=== PATIENT | male | born 1935 | race Caucasian/White ===

== ENCOUNTER 2021-06-23 20:15 | Inpatient (IN) | payer MEDICARE, OTHER ==
[~2021-06-23] VITALS: Ht 170.2 cm; Wt 70.8 kg
[2021-06-23 20:38] LABS: ARTERIAL BLD GAS O2 SATURATION 93.1 % (92-100); ARTERIAL BLD GAS TCO2 CT 24.5; ARTERIAL BLOOD GAS BASE EXCESS 0.7 (-2-2); ARTERIAL BLOOD GAS HCO3 23.5 meq/L (22-26); ARTERIAL BLOOD GAS PCO2 31.6 mmHg (35-45); ARTERIAL BLOOD GAS PO2 67.2 mmHg (80-100); ARTERIAL BLOOD GAS pH 7.49 (7.35-7.45)
[2021-06-23 20:49] LABS: HEMOGLOBIN 10.1 g/dl (13.5-18.0); MEAN CELL VOLUME 87 fl (80.0-100.0); MEAN CORPUSCULAR HEMOGLOBIN 29 pg (27.0-31.0); MEAN CORPUSCULAR HGB CONC 34 g/dl (33.0-37.0); MEAN PLATELET VOLUME 9.9 fl (7.4-10.4); PLATELET COUNT 244 K/mm3 (130-400); RED BLOOD COUNT 3.46 M/mm3 (4.20-5.60); REDCELL DISTRIBUTION WIDTH-CV 14.3 % (11.5-14.5)
[2021-06-23 20:59] LABS: HEMATOCRIT 30.1 % (42.0-52.0)
[2021-06-23 21:12] LABS: ALBUMIN 2.9 gm/dL (3.4-4.8); BILIRUBIN,TOTAL 0.4 mg/dL (0.2-1.2); CALCIUM 8.6 mg/dL (8.4-10.2); CREATININE, serum 2.01 mg/dL (0.72-1.25); POTASSIUM 3.5 mmol/L (3.5-4.5); TOTAL PROTEIN 6.9 gm/dL (6.2-8.1)
[2021-06-23 21:18] LABS: TROPONIN-I 0.015 ng/mL (0.00-0.033)
[2021-06-23 21:38] LABS: BAND 3 % (0-10); LYMPHOCYTE 8 % (20.0-51.0); METAMYELOCYTE 1 % (0-0); NEUTROPHILS 86 % (42.0-75.2); PLATELET ESTIMATE NORMAL (NORMAL)
--- NOTE | 2021-06-23 23:00 | NUR ---
Patient to medical room 306 at this time. He is alert and oriented with no complaints of pain. He is on 30 liters airvo and satting 95%. He ambulates with SBA assist to bathroom to void. Pt has a nonproductive cough but denies need for cough medicine. Lungs are diminished throughout and HR is normal/regular. No edema or skin issues are noted. Comfort measures provided and call light in reach.
[2021-06-23 23:25] VITALS: BP 157/64; PULSE 69; TEMP 98.6
[2021-06-24 01:58] LABS: INR 1.1 (0.8-3.0); PROTHROMBIN TIME 11.9 SECONDS (9.7-12.8)
[2021-06-24] MEDS ORDERED: ASPIRIN 81M81 MG/TA2 PO (04:08)
[2021-06-24] MEDS ORDERED: NORVASC 10MG10 MG PO (04:08)
[2021-06-24] MEDS ORDERED: MUCINEX 60600 MG/TA1 PO (04:09)
[2021-06-24] MEDS ORDERED: ZANTAC-360 (FAM20 MG PO (04:10)
[2021-06-24] MEDS ORDERED: MASON NATURAL2000 IU PO (04:10)
[2021-06-24] MEDS ORDERED: ZOCOR 10MG10 MG PO (04:10)
[2021-06-24] MEDS ORDERED: MICARDIS40 MG PO (04:10)
[2021-06-24] MEDS ORDERED: ZYRTEC 10MG10 MG PO (04:11)
[2021-06-24] MEDS ORDERED: MYRBETR25MG PO (04:11)
[2021-06-24] MEDS ORDERED: CHERATUSSIN AC240 ML PO (04:12)
[2021-06-24] MEDS ORDERED: ASTELIN NASAL S34 ML NS (04:12)
[2021-06-24] MEDS ORDERED: FLONASEALLERGY NS (04:12)
[2021-06-24] MEDS ORDERED: METAMUCIL3.4 GM/DOS PO (04:13)
[2021-06-24 05:27] VITALS: BP 147/67; PULSE 61; TEMP 98.5
--- NOTE | 2021-06-24 07:09 | NUR ---
RECEIVED REPORT FROM NICO ZAVALETA. PT ASLEEP IN BED. BREATHING REGULAR/UNLABORED. AIRVO ON. CALL REID IN REACH
[2021-06-24 08:15] LABS: HEMOGLOBIN 10.2 g/dl (13.5-18.0); MEAN CELL VOLUME 87 fl (80.0-100.0); MEAN CORPUSCULAR HEMOGLOBIN 30 pg (27.0-31.0); MEAN CORPUSCULAR HGB CONC 35 g/dl (33.0-37.0); MEAN PLATELET VOLUME 10.2 fl (7.4-10.4); PLATELET COUNT 246 K/mm3 (130-400); REDCELL DISTRIBUTION WIDTH-CV 14.2 % (11.5-14.5)
[2021-06-24 08:24] LABS: HEMATOCRIT 29.4 % (42.0-52.0)
[2021-06-24 09:21] VITALS: BP 114/71; PULSE 81; TEMP 98.8
[2021-06-24 09:30] LABS: BAND 7 % (0-10); HYPOCHROMIA 1+; LYMPHOCYTE 4 % (20.0-51.0); METAMYELOCYTE 1 % (0-0); NEUTROPHILS 88 % (42.0-75.2)
[2021-06-24 09:36] LABS: ANISOCYTOSIS 1+
--- NOTE | 2021-06-24 10:55 | NUR ---
CRITICAL LAB VALUE REPORTED TO DR AT 1000.
--- NOTE | 2021-06-24 11:10 | NUR ---
HEPARIN DRIP STARTED BY NICO HICKMAN. VERIFIED BY NICO EASLEY. PT INCONTININENT OF URINE. NEW GOWN AND SHEETS GIVEN
[2021-06-24 12:12] VITALS: BP 140/63; PULSE 76; TEMP 98.8
[2021-06-24 16:34] VITALS: BP 1401/58; PULSE 62; TEMP 98.2
--- NOTE | 2021-06-24 18:20 | NUR ---
PT HAD UNEVENTFUL DAY. NO NEEDS AT THIS TIME. PT DENIES PAIN. CALL REID IN REACH
--- NOTE | 2021-06-24 20:00 | NUR ---
Assessment complete. Patient on 30 liters airvo and tolerating well, satting 96%. Patient is independent/SBA for equipment in room; He has urinary incontinence and is provided with new brief and linen at this time. No edema is noted, patient is afebrile. No new concerns, call light in reach.
[2021-06-24 21:42] VITALS: BP 125/66; PULSE 72; TEMP 98.4
[2021-06-24 22:57] LABS: CALCIUM 8.7 mg/dL (8.4-10.2); CREATININE, serum 1.24 mg/dL (0.72-1.25); MAGNESIUM 1.8 mg/dL (1.6-2.6); POTASSIUM 3.7 mmol/L (3.5-4.5)
[2021-06-24 23:04] LABS: TROPONIN-I 0.025 ng/mL (0.00-0.033)
[2021-06-24 23:29] VITALS: BP 150/70; PULSE 66; TEMP 98.4
[2021-06-25 03:03] LABS: ARTERIAL BLD GAS O2 SATURATION 93.4 % (92-100); ARTERIAL BLD GAS TCO2 CT 22.8; ARTERIAL BLOOD GAS BASE EXCESS -0.6 (-2-2); ARTERIAL BLOOD GAS HCO3 21.8 meq/L (22-26); ARTERIAL BLOOD GAS PCO2 30.7 mmHg (35-45); ARTERIAL BLOOD GAS PO2 65.6 mmHg (80-100); ARTERIAL BLOOD GAS pH 7.47 (7.35-7.45)
[2021-06-25 06:57] LABS: MEAN CELL VOLUME 88 fl (80.0-100.0); MEAN CORPUSCULAR HGB CONC 33 g/dl (33.0-37.0); MEAN PLATELET VOLUME 10.2 fl (7.4-10.4); PLATELET COUNT 250 K/mm3 (130-400); RED BLOOD COUNT 3.16 M/mm3 (4.20-5.60); REDCELL DISTRIBUTION WIDTH-CV 14.2 % (11.5-14.5)
[2021-06-25 07:00] LABS: HEMATOCRIT 27.9 % (42.0-52.0); HEMOGLOBIN 9.1 g/dl (13.5-18.0); MEAN CORPUSCULAR HEMOGLOBIN 29 pg (27.0-31.0)
[2021-06-25 07:11] LABS: ALBUMIN 2.6 gm/dL (3.4-4.8); BILIRUBIN,TOTAL 0.3 mg/dL (0.2-1.2); CALCIUM 8.6 mg/dL (8.4-10.2); CREATININE, serum 1.14 mg/dL (0.72-1.25); POTASSIUM 4.1 mmol/L (3.5-4.5)
[2021-06-25 08:07] LABS: HYPOCHROMIA 1+; LYMPHOCYTE 9 % (20.0-51.0); NEUTROPHILS 89 % (42.0-75.2)
[2021-06-25 08:08] LABS: PLATELET ESTIMATE NORMAL (NORMAL)
[2021-06-25 09:18] VITALS: BP 160/63; PULSE 65; TEMP 98.3
--- NOTE | 2021-06-25 10:25 | NUR ---
Pt awake upon entry, sitting on side of bed. No C/O pain at this time. Shift assessment complete, left Pt call light selma reach, bed in lowest position.
[2021-06-25 11:48] VITALS: BP 149/62; PULSE 63; TEMP 97.8
[2021-06-25 17:44] VITALS: BP 143/65; PULSE 66; TEMP 98
--- NOTE | 2021-06-25 18:36 | NUR ---
Pt resting in the room, currently on 45 LPM AIRVO. No complaints during the day. VS have remained stable.
--- NOTE | 2021-06-25 20:00 | NUR ---
Patient is sitting in bed, alert and oriented x 4, VSS, using Airvo 45% O2 WNL. Denies pain, nausea, vomiting, dizziness. Tele in place. Assessment completed, some briefs provided. No further need at this time. Call light within reach.
[2021-06-25 20:16] VITALS: BP 160/69; PULSE 74; TEMP 98.5
[2021-06-25 23:34] VITALS: BP 159/60; PULSE 79; TEMP 98.3
--- NOTE | 2021-06-26 00:25 | NUR ---
Patient is resting in bed, Airvo 35L per min, 70%o2.
--- NOTE | 2021-06-26 02:56 | NUR ---
Patient is awake in room after going to restroom. TELE lost, help him to find it and connect it again. Patient continues with cough.
[2021-06-26 03:12] LABS: ARTERIAL BLD GAS O2 SATURATION 96.3 % (92-100); ARTERIAL BLD GAS TCO2 CT 22.7; ARTERIAL BLOOD GAS BASE EXCESS -0.8 (-2-2); ARTERIAL BLOOD GAS HCO3 21.7 meq/L (22-26); ARTERIAL BLOOD GAS PCO2 30.2 mmHg (35-45); ARTERIAL BLOOD GAS pH 7.48 (7.35-7.45)
[2021-06-26 03:28] VITALS: BP 150/63; PULSE 63; TEMP 98.3
--- NOTE | 2021-06-26 06:10 | NUR ---
Patient has have a calm night. He continues with the same settings for the airvo. He was sleeping on his chest for a couple of hrs. Then call asking to replace the O2 in his nose. No further needs at this time. Call light within reach. Shift report will be given to day nurse.
[2021-06-26 06:36] LABS: MEAN CELL VOLUME 91 fl (80.0-100.0); MEAN CORPUSCULAR HGB CONC 32 g/dl (33.0-37.0); MEAN PLATELET VOLUME 10.5 fl (7.4-10.4); PLATELET COUNT 292 K/mm3 (130-400); RED BLOOD COUNT 3.41 M/mm3 (4.20-5.60); REDCELL DISTRIBUTION WIDTH-CV 14.2 % (11.5-14.5)
[2021-06-26 06:42] LABS: HEMATOCRIT 30.9 % (42.0-52.0); HEMOGLOBIN 9.9 g/dl (13.5-18.0); MEAN CORPUSCULAR HEMOGLOBIN 29 pg (27.0-31.0)
[2021-06-26 06:43] LABS: C-REACTIVE PROTEIN 6.3 mg/dL (0.00-0.50); CALCIUM 8.5 mg/dL (8.4-10.2); CREATININE, serum 0.97 mg/dL (0.72-1.25); POTASSIUM 4.2 mmol/L (3.5-4.5)
[2021-06-26 08:32] VITALS: BP 169/67; PULSE 73; TEMP 98.7
[2021-06-26 08:57] LABS: BAND 1 % (0-10); HYPOCHROMIA 1+; LYMPHOCYTE 6 % (20.0-51.0); NEUTROPHILS 82 % (42.0-75.2); PLATELET ESTIMATE NORMAL (NORMAL)
--- NOTE | 2021-06-26 09:31 | NUR ---
Pt awake upon entry, sitting in bed. No C/O pain at this time. Shift assessment complete, left Pt call light in reach, bed in lowest position.
[2021-06-26 12:15] VITALS: BP 137/67; PULSE 66; TEMP 98.4
[2021-06-26 16:45] VITALS: BP 144/63; PULSE 75; TEMP 98.4
[2021-06-26 20:03] VITALS: BP 153/60; PULSE 63; TEMP 98.3
--- NOTE | 2021-06-26 23:29 | NUR ---
PT SITTING UP ON EDGE OF BED. EVENING MEDICATIONS GIVEN. BREATHING LABORED, WITH INSPIRATORY WHEEZING. DENIES ANY NEEDS. WILL CONTINUE TO MONITOR.
[2021-06-26 23:45] VITALS: BP 149/61; PULSE 63; TEMP 98.4
[2021-06-27 03:06] LABS: ARTERIAL BLD GAS O2 SATURATION 94.4 % (92-100); ARTERIAL BLD GAS TCO2 CT 22.7; ARTERIAL BLOOD GAS BASE EXCESS -1.3 (-2-2); ARTERIAL BLOOD GAS HCO3 21.8 meq/L (22-26); ARTERIAL BLOOD GAS PO2 72.1 mmHg (80-100); ARTERIAL BLOOD GAS pH 7.46 (7.35-7.45)
[2021-06-27 05:10] VITALS: BP 160/64; PULSE 66; TEMP 98.6
[2021-06-27 07:09] LABS: HEMOGLOBIN 10.7 g/dl (13.5-18.0); MEAN CELL VOLUME 87 fl (80.0-100.0); MEAN CORPUSCULAR HEMOGLOBIN 29 pg (27.0-31.0); MEAN CORPUSCULAR HGB CONC 34 g/dl (33.0-37.0); MEAN PLATELET VOLUME 9.7 fl (7.4-10.4); PLATELET COUNT 351 K/mm3 (130-400); RED BLOOD COUNT 3.67 M/mm3 (4.20-5.60)
[2021-06-27 07:13] LABS: HEMATOCRIT 31.9 % (42.0-52.0)
[2021-06-27 07:36] LABS: C-REACTIVE PROTEIN 4.4 mg/dL (0.00-0.50); CALCIUM 8.5 mg/dL (8.4-10.2); CREATININE, serum 0.91 mg/dL (0.72-1.25); POTASSIUM 4.2 mmol/L (3.5-4.5)
--- NOTE | 2021-06-27 08:32 | NUR ---
Pt awaake upon entry, in restroom. Steady gait. No C/O pain at this time. shift assessment complete, left Pt sitting on side of bed eating breakfast.
[2021-06-27 09:04] VITALS: BP 157/72; PULSE 64; TEMP 98.5
[2021-06-27 12:31] VITALS: BP 121/86; PULSE 73; TEMP 98.5
[2021-06-27 17:04] VITALS: BP 144/60; PULSE 67; TEMP 98.7
[2021-06-27 20:00] VITALS: BP 142/96; PULSE 74; TEMP 98.7
--- NOTE | 2021-06-27 20:50 | NUR ---
PT RESTING IN BED. EVENING MEDICATIONS GIVEN. PICC FLUSHES AND HAS BLOOD RETURN. DENIES ANY NEEDS. WILL CONTINUE TO MONITOR.
[2021-06-28 00:41] VITALS: BP 149/65; PULSE 72; TEMP 98.5
[2021-06-28 03:56] VITALS: BP 152/67; PULSE 80; TEMP 98.7
[2021-06-28 06:13] LABS: ARTERIAL BLD GAS O2 SATURATION 96.7 % (92-100); ARTERIAL BLD GAS TCO2 CT 22.7; ARTERIAL BLOOD GAS BASE EXCESS -0.4 (-2-2); ARTERIAL BLOOD GAS HCO3 21.8 meq/L (22-26); ARTERIAL BLOOD GAS PCO2 28.2 mmHg (35-45); ARTERIAL BLOOD GAS PO2 86.6 mmHg (80-100); ARTERIAL BLOOD GAS pH 7.51 (7.35-7.45)
[2021-06-28 06:42] LABS: HEMOGLOBIN 10.5 g/dl (13.5-18.0); MEAN CELL VOLUME 89 fl (80.0-100.0); MEAN CORPUSCULAR HEMOGLOBIN 29 pg (27.0-31.0); MEAN CORPUSCULAR HGB CONC 32 g/dl (33.0-37.0); MEAN PLATELET VOLUME 10.5 fl (7.4-10.4); PLATELET COUNT 373 K/mm3 (130-400); RED BLOOD COUNT 3.64 M/mm3 (4.20-5.60); REDCELL DISTRIBUTION WIDTH-CV 13.9 % (11.5-14.5)
[2021-06-28 06:49] LABS: HEMATOCRIT 32.4 % (42.0-52.0)
[2021-06-28 07:06] LABS: C-REACTIVE PROTEIN 6.5 mg/dL (0.00-0.50); CALCIUM 8.4 mg/dL (8.4-10.2); CREATININE, serum 0.83 mg/dL (0.72-1.25); POTASSIUM 4.1 mmol/L (3.5-4.5)
[2021-06-28 08:45] VITALS: BP 164/54; PULSE 68; TEMP 98.2
--- NOTE | 2021-06-28 09:30 | NUR ---
Pt awake upon entry to room, sitting on side of bed. No C/O pain at this time. shift assessment complete, left Pt call light in reach, bed in lowest position.
[2021-06-28 13:49] VITALS: BP 135/68; PULSE 73; TEMP 97.9
--- NOTE | 2021-06-28 16:21 | NUR ---
Digital Print Operator attempted to contact patient by room phone with no sucess. Patient is in contact isolation due to COVID. JAVIER contacted patient's daughter, Loreta (ph#[phone]) to discuss discharge planning. Patient lives in [place], [place] and was here for his granddaughter's wedding. Patient sees Dr. Mendez in [place] for primary care. Patient does not use any DME and is normally independent with ADLS. Patient is not normally on oxygen but is currently requiring 4 liters. Patient does not have Advance Directives. Patient is , however Loreta advised patient's , Azeb has severe dementia. Patient has five children: Jessy, Cece, Loreta, Dayami, and Sp. Patient plans to return home upon discharge. Loreta states they have returned to [place] but will drive back up to get patient upon discharge. JAVIER contacted Juana with [facility] as patient may require oxygen upon discharge and is from [place] of state. JAVIER faxed referral and Juana will follow up on if they can provide enough oxygen to get patient home on. Discharge Plan: Home with family.
[2021-06-28 17:38] VITALS: BP 129/78; PULSE 72; TEMP 98
[2021-06-28 20:00] VITALS: BP 144/67; PULSE 82; TEMP 98
--- NOTE | 2021-06-28 22:30 | NUR ---
PT RESTING IN BED. EVENING MEDICATIONS GIVEN. STOOL SAMPLE OBTAINED. PT DENIES ANY NEEDS. WILL CONTINUE TO MONITOR.
[2021-06-29 00:01] VITALS: BP 155/66; PULSE 71; TEMP 98.7
[2021-06-29 05:06] VITALS: BP 166/68; PULSE 64; TEMP 98.6
--- NOTE | 2021-06-29 07:00 | NUR ---
Report received from NICO Huff. PT in bed resting, will continue to monitor.
[2021-06-29 08:36] VITALS: BP 171/69; PULSE 60; TEMP 98.5
[2021-06-29 08:36] LABS: HEMOGLOBIN 10.6 g/dl (13.5-18.0); MEAN CELL VOLUME 90 fl (80.0-100.0); MEAN CORPUSCULAR HEMOGLOBIN 29 pg (27.0-31.0); MEAN CORPUSCULAR HGB CONC 32 g/dl (33.0-37.0); MEAN PLATELET VOLUME 10.4 fl (7.4-10.4); PLATELET COUNT 414 K/mm3 (130-400); RED BLOOD COUNT 3.68 M/mm3 (4.20-5.60); REDCELL DISTRIBUTION WIDTH-CV 14.1 % (11.5-14.5)
[2021-06-29 08:46] LABS: HEMATOCRIT 33.1 % (42.0-52.0)
--- NOTE | 2021-06-29 09:00 | NUR ---
Assessment charted. Pt c/o feeling very cold, warm blanket provided, pt is afebrile. Resting in bed, ordered breakfast, up ad bernard in room and moves well. PICC to GABRIELLE flushes well and good blood return. 02 at 4L NC. Coughing at times and some sputum. Will continue to monitor.
[2021-06-29 09:05] LABS: C-REACTIVE PROTEIN 3.7 mg/dL (0.00-0.50); CALCIUM 8.4 mg/dL (8.4-10.2); CREATININE, serum 0.86 mg/dL (0.72-1.25); POTASSIUM 4.2 mmol/L (3.5-4.5)
[2021-06-29 11:40] VITALS: BP 140/68; PULSE 83; TEMP 98
[2021-06-29 15:52] VITALS: BP 104/78; PULSE 74; TEMP 97.9
--- NOTE | 2021-06-29 16:07 | NUR ---
[employer] 6 Visiting Teacher was contacted by Juana at [facility] who advised there is a [facility] in [facility] that orders should be sent to upon discharge. Juana advised they can send patient with tanks to get home on, but patient needs to be down to 2-3 liters prior to discharge.
--- NOTE | 2021-06-29 16:48 | NUR ---
Update provided to colby Pang regarding patient possible discharge tomorrow. She states she will talk to her and then probably drive up here tomorrow from [place] to be ready for when he discharges.
[2021-06-29 21:24] VITALS: BP 141/58; PULSE 66; TEMP 97.6
--- NOTE | 2021-06-29 22:16 | NUR ---
PT RESTING IN BED. EVENING MEDICATIONS GIVEN. DENIES ANY NEEDS AT THIS TIME. ASSESSMENT COMPLETED. WILL CONTINUE TO MONITOR.
[2021-06-30 02:04] VITALS: BP 158/69; PULSE 65; TEMP 98.6
[2021-06-30 04:32] VITALS: BP 161/70; PULSE 60; TEMP 98
--- NOTE | 2021-06-30 05:41 | NUR ---
PT HAD AN UNEVENTFUL NIGHT. WAS ABLE TO TITRATE DOWN TO 2L NASAL CANNULA. DENIES ANY NEEDS. CONTINUING TO MONITOR.
[2021-06-30 08:28] VITALS: BP 160/60; PULSE 65; TEMP 98.4
--- NOTE | 2021-06-30 09:54 | NUR ---
Heating Fixture Tender made contact with [facility] in [place], [place] and was advised they do not do oxygen, only CPAP. Upon discharge, SW will need to fax referral and orders to the [facility] location. #[phone] FAX#[phone] Address: [address], [facility] [address]
--- NOTE | 2021-06-30 10:37 | NUR ---
Scheduled medication given. Shift assessment preformed. VSS. Patient currently requiring 3L of O2 via nasal cannula. Denies any pain, discomfort, or further needs at this time. No N/V/D reported. Patient is afebrile. Call light in reach.
[2021-06-30 12:41] VITALS: BP 137/55; PULSE 66; TEMP 98.2
--- NOTE | 2021-06-30 13:18 | NUR ---
Forging Operator collaborated with Hospitalist about discharge plan. Patient to discharge home tomorrow and will have exercise oximetry today. JAVIER contacted patient's daughter, Loreta and updated her on discharge plan. JAVIER advised that [employer] will deliver tanks for the drive to [place], then patient's home system will be set up by the [facility] in [place], [place]. Loreta verbalized understanding and advised her brother is in route to [place] so he can take patient home tomorrow. JAVIER reviewed exercise oximetry and patient will not qualify for home oxygen at this time. JAVIER updated patient's daughter Loreta and Juana from [employer]. Juana advised she has been in contact with the [facility] office to give them updates. Dicharge Plan: Home with family tomorrow
--- NOTE | 2021-06-30 15:54 | NUR ---
PATIENT INFORMED THIS RN THIS AM THAT HE HAS NOT HAD HIS DENTURES SINCE HE TRANSFERRED ROOMS. PREVIOUS ROOM CHECKED, WITH NO SUCCESS. HOUSEKEEPING AND RESOURCE RECOVERY ENGINEER CONTACTED. WILL CONTINUE TO SEARCH FOR MISSING ITEM.
[2021-06-30 16:00] VITALS: BP 112/61; PULSE 69; TEMP 98.3
--- NOTE | 2021-06-30 17:26 | NUR ---
Patient had an ok day. Currently not requiring any O2. Patient denies any pain, discomfort, SOA, or further needs at this time. Call light in reach.
--- NOTE | 2021-06-30 20:00 | NUR ---
Assessment complete. Patient is alert and oriented with no complaints of pain. He is satting 91-92% on RA with no signs of increased work of breathing. He has a cough and PRN robitussin with codeine is administered. Patient is afebrile. No additional concerns, will continue to monitor.
[2021-06-30 20:46] VITALS: BP 128/58; PULSE 62; TEMP 98
[2021-07-01 00:21] VITALS: BP 146/62; PULSE 61; TEMP 97.6
[2021-07-01 05:18] VITALS: BP 141/57; PULSE 57; TEMP 98
[2021-07-01 08:00] VITALS: BP 108/55; PULSE 71; TEMP 97.9
[2021-07-01] MEDS ORDERED: PROAIR HFA0.09 MG/AC IH (10:20)
[2021-07-01 12:17] VITALS: BP 150/58; PULSE 61; TEMP 98.3
--- NOTE | 2021-07-01 12:43 | NUR ---
Shift assessment preformed. Scheduled medications given. Patient not requiring any O2 at this time. Patient deemed fit for discharge. PICC removed by NICO Silverio. Discharge instructions/education given. All questions answered. Patient denies any pain, discomfort, SOA, or further needs at this time. Patient escorted out of the building via wheelchair by [facility] staff. Son transporting back home to [place]. Encouraged to take multiple breaks during trip to walk around. VSS. Patient A&O.
--- NOTE | 2021-07-01 13:47 | NUR ---
Patient discharged home with family today. Patient had no oxygen needs at time of discharge.
== END 2021-07-01 12:48 | disposition home or self-care (01) | DRG 177 ==
LOC: COL.ER 20:15 → MEDICAL 22:16
PROVIDERS: Emergency Medicine; Internal Medicine; Nurse Practitioner Family; ADMIT Family Medicine
PROC: XW033E5 Introduction of Remdesivir Anti-infective into Peripheral Vein, Percutaneous Approach, New Technology Group 5 (ICD-10-PCS; principal; 2021-06-23)
PROC: 02HV33Z Insertion of Infusion Device into Superior Vena Cava, Percutaneous Approach (ICD-10-PCS; 2021-06-27)
DX: U07.1 COVID-19 (principal); J96.01 Acute respiratory failure with hypoxia; J12.82 Pneumonia due to coronavirus disease 2019; N17.9 Acute kidney failure, unspecified; R04.2 Hemoptysis; I10 Essential (primary) hypertension; K21.9 Gastro-esophageal reflux disease without esophagitis; D64.9 Anemia, unspecified; E78.5 Hyperlipidemia, unspecified; Z79.82 Long term (current) use of aspirin; Z85.46 Personal history of malignant neoplasm of prostate; Z88.0 Allergy status to penicillin
CPT/HCPCS: 99223-AI; 99232-AI; 99233-AI; 99239; C1751; J0456; J0692; J0696; J1100; J1644; J7030; J7050; J7120; Q0249